=== PATIENT | female | born 1955 | race Caucasian/White ===

== ENCOUNTER 2023-05-07 17:45 | Emergency (ER) | payer MEDICARE, SELFPAY ==
[2023-05-07] VITALS (8 sets, daily range): BP systolic 95–158; BP diastolic 65–88; PULSE 99–110; RESP 13–28; TEMP 37.1; O2SAT 96–98; BMI 29.7
--- NOTE | 2023-05-07 18:29 | XRR_ITS ---
PROCEDURE INFORMATION: Exam: XR Chest Exam date and time: 05/07/2023 6:41 PM Age: 68 years old Clinical indication: Cough; Additional info: Cough/congestion TECHNIQUE: Imaging protocol: Radiologic exam of the chest. Views: 1 view. COMPARISON: CT abdomen pelvis w con* [id number] 08/07/2018 11:40 PM FINDINGS: Lungs: No focal consolidation. Pleural spaces: No evidence of pneumothorax. No evidence of pleural effusion. Heart/Mediastinum: Cardiomediastinal silhouette is within normal limits. Bones/joints: No evidence of acute osseous abnormality. XR/XR chest 1V portable [id number] IMPRESSION: 1. No acute cardiopulmonary abnormality.
--- NOTE | 2023-05-07 18:29 | ED_ITS ---
HPI - General Adult 2 General: Chief complaint: General Medical Stated complaint: high blood pressure Time Seen by Provider: 05/07/23 18:05 Source: patient and family () Mode of arrival: ambulatory Limitations: no limitations History of Present Illness: Patient is a very nice 68-year-old female presents to ED today along with her for evaluation of elevated blood pressure. PMH is significant only for hypertension which is usually well treated with 5mg of daily amlodipine. states recently has been under a great deal of stress as they have been taking care of her mother in their home who is terminally ill. She just a few days ago and since then patient has been struggling with anxiety. also feels like she is just gotten worn down as she has developed rhinorrhea and a productive cough. She has not been running fevers. She does complain of some pressure behind her eyes as well. No visual changes. She does not complain of a severe headache. She has not been using any OTC cough/cold formulations. states patient's mother had as needed hydralazine that has been gave to patient earlier today to help with blood pressures as they were as high as 180/118 earlier today. Upon my examination BP is currently 130s/70s. She has not had any chest pain. Onset (ago): day(s) (BP high over the past two days) Relieving factors: none Exacerbating factors: other (possibly stress/grief reaction) Associated symptoms: Reports cough; Deny chest pain, confusion, dyspnea, malaise, nausea, rash, palpitations, syncope or vomiting Treatments prior to arrival: other (Hydralazine) Review of Systems 2 Const: Reports: fatigue; Denies: fever(s), chills, body aches or malaise Eyes: Denies: change in vision, blurry vision, photophobia, floaters or seeing flashes ENMT: Reports: nasal discharge and sinus pain; Denies: throat pain, odynophagia, ear or mastoid pain or nasal congestion Card: Denies: chest pain, palpitations, irregular heart rhythm, edema, lightheadedness, syncope or pre-syncope Resp: Reports: productive cough and chest congestion; Denies: dyspnea, wheezing or hemoptysis GI: Denies: abdominal pain, nausea, vomiting or diarrhea Musc: Denies: neck pain, back pain, extremity pain or joint pain Skin/Breast: Denies: rash Neuro: Denies: numbness in extremities, weakness in extremities, sensory changes, difficulty walking, dizziness, confusion, Slurred speech present or difficulty communicating thoughts Physical Exam 2 Const: COMMON NORMALS: no acute distress, average body habitus, patient oriented x3, no limitations, healthy appearing, alert and well nourished G ENERAL APPEARANCE: cooperative ORIENTATION/CONSCIOUSNESS: Yes awake, Yes oriented to person, Yes oriented to place and Yes oriented to time HENMT: COMMON NORMALS: normocephalic and atraumatic HEAD & SCALP: normal to inspection, normocephalic and atraumatic Resp: COMMON NORMALS: normal respiratory effort and clear to auscultation bilaterally AUSCULTATION: clear to auscultation bilaterally Cardio: COMMON NORMALS: regular rate and regular rhythm RATE: regular rate RHYTHM: regular rhythm Extremity: COMMON NORMALS: no clubbing, cyanosis or edema, no calf tenderness and no pedal edema Neuro: ABIMAEL COMA SCALE: document GCS findings Hume coma scale eye opening: Spontaneous Abimael coma scale verbal response: Orientated Abimael coma scale motor response: Obey commands Hume coma scale total score: 15 COMMON NORMALS: patient oriented x3, moves all extremities, no focal motor deficits and no sensory deficits noted SENSORIUM/ORIENTATION: Yes alert, Yes oriented to person, Yes oriented to place and Yes oriented to time Skin: COMMON NORMALS: no rashes or lesions noted GENERAL SKIN EXAM: no rashes or lesions noted Course 2 Vital Signs: Vital signs: Vital Signs Temperature 98.8 F 05/07/23 17:55 Pulse Rate 102 H 05/07/23 19:00 Respiratory Rate 17 05/07/23 19:00 Blood Pressure 109/70 05/07/23 19:00 Pulse Oximetry 97 05/07/23 19:00 Oxygen Delivery Me thod Room Air 05/07/23 19:00 [facility] - General Adult Medical Decision Making Vital signs here have been stable. She has had some mild tachycardia but blood pressures have not been significantly elevated. Blood work is essentially unremarkable. She had some mild hypokalemia at 3.1. Respiratory panel collected and pending due to the cough, congestion, runny nose, and feeling worn down although this could be mentally/emotionally secondary to caring for her mother over the past month prior to her passing. CXR unremarkable. and patient would like to try something to help with her anxiety/grief. They will follow up with their PCP for the blood pressure if this continues to run high. Lab Data 05/07/23 18:50 05/07/23 18:50 Radiology Impressions Chest X-Ray 05/07/23 18:29 IMPRESSION: 1. No acute cardiopulmonary abnormality. Laboratory Results WBC 9.84 10^3/uL (3.29-11.43) 05/07/23 18:50 RBC 5.15 10^6/uL (3.85-5.65) 05/07/23 18:50 Hgb 14.70 g/dL (11.27-16.99) 05/07/23 18:50 Hct 45.0 % (36-47) 05/07/23 18:50 MCV 87.4 fl (85-98) 05/07/23 18:50 MCH 28.5 pg (27-33) 05/07/23 18:50 MCHC 32.7 g/dL (30-55) 05/07/23 18:50 RDW 13.7 % (12.1-15.1) 05/07/23 18:50 Plt Count 261 10^3/cmm (157-399) 05/07/23 18:50 MPV 9.9 fL (7.4-10.4) 05/07/23 18:50 Neut % (Auto) 82.1 % 05/07/23 18:50 Lymph % (Auto) 8.0 % 05/07/23 18:50 [place] % (Auto) 6.1 % 05/07/23 18:50 Eos % (Auto) 2.0 % 05/07/23 18:50 Baso % (Auto) 1.2 % 05/07/23 18:50 Neut # (Auto) 8.07 10^3/uL (1.8-7.7) H 05/07/23 18:50 Lymph # (Auto) 0.8 10^3/uL (0.8-4.8) 05/07/23 18:50 [place] # (Auto) 0.6 10^3/uL (0.2-0.9) 05/07/23 18:50 Eos # (Auto) 0.2 10^3/uL (0.0-0.8) 05/07/23 18:50 Baso # (Auto) 0.1 10^3/uL (0.0-0.1) 05/07/23 18:50 Nucleated RBC % (auto) 0 % 05/07/23 18:50 Nucleated RBCs # 0.0 /100WBC 05/07/23 18:50 Sodium 136 mmol/L (136-145) 05/07/23 18:50 Potassium 3.1 mmol/L (3.5-5.1) L 05/07/23 18:50 Chloride 100 mmol/L (98-107) 05/07/23 18:50 Carbon Dioxide 26 mmol/L (22-29) 05/07/23 18:50 Anion Gap 13.1 (5-19) 05/07/23 18:50 BUN 11 mg/dL (8-23) 05/07/23 18:50 Creatinine 0.7 mg/dL (0.5-0.9) 05/07/23 18:50 GFR Calculation 83.0 mL/min (90-130) L 05/07/23 18:50 Glucose 103 mg/dL (65-115) 05/07/23 18:50 Calculated Osmolality 282 mOsm/kg (285-295) L 05/07/23 18:50 Calcium 9.2 mg/dL (8.5-10.5) 05/07/23 18:50 Total Bilirubin 0.2 mg/dL (0.15-1.2) 05/07/23 18:50 AST 22 U/L (0-32) 05/07/23 18:50 ALT 28 U/L (0-33) 05/07/23 18:50 Alkaline Phosphatase 145 U/L (35-105) H 05/07/23 18:50 Total Protein 8.2 g/dL (6.6-8.7) 05/07/23 18:50 Albumin 4.4 g/dL (3.5-5.2) 05/07/23 18:50 Globulin 3.8 g/dL (1.3-4.6) 05/07/23 18:50 All radiology interpretation(s) finalized by discharge Discharge Plan Discharge Patient Disposition: Home Clinical Impression: Grief reaction Hypertension Qualifiers: Hypertension type: primary hypertension Qualified Code(s): I10 - Essential (primary) hypertension Condition: Stable Prescriptions: New Ativan 1 mg tablet 1 mg PO Q8H PRN (Reason: anxiety) Qty: 14 0RF Discharge Orders: Discharge ED (Routine); Ordered 05/07/23 Ordered By: Gi Orozco Activity Restrictions/Additional Instructions: As we discussed we will give patient something to attempt to help with her anxiety and grief. This may in turn help with her blood pressure. If blood pressure continues to remain elevated please follow-up with her primary care provider. Coding Level of Care Code ED [employer] for Janeth Fair
[2023-05-07] MEDS: LORazepam 2 mg/mL INJ 10 mL MDV 1 MG IM (18:54)
[2023-05-07 19:08] LABS: Basophils # 0.1 10^3/uL (0.0-0.1); Basophils % 1.2 %; Eosinophils # 0.2 10^3/uL (0.0-0.8); Lymphocytes # 0.8 10^3/uL (0.8-4.8); Mean Corpuscular HGB Conc 32.7 g/dL (30-55); Mean Corpuscular Hemoglobin 28.5 pg (27-33); Mean Corpuscular Volume 87.4 fl (85-98); Mean Platelet Volume 9.9 fL (7.4-10.4); Monocytes # 0.6 10^3/uL (0.2-0.9); Monocytes % 6.1 %; Neutrophils # 8.07 10^3/uL (1.8-7.7); Neutrophils % 82.1 %; Nucleated Red Blood Cells % 0 %; Platelet Count 261 10^3/cmm (157-399); Red Blood Count 5.15 10^6/uL (3.85-5.65); Red Cell Distribution Width 13.7 % (12.1-15.1); White Blood Count 9.84 10^3/uL (3.29-11.43)
[2023-05-07 19:25] LABS: Alanine Aminotransferase 28 U/L (0-33); Albumin Level 4.4 g/dL (3.5-5.2); Alkaline Phosphatase 145 U/L (35-105); Anion Gap 13.1 (5-19); Aspartate Amino Transferase 22 U/L (0-32); Blood Urea Nitrogen 11 mg/dL (8-23); Calcium 9.2 mg/dL (8.5-10.5); Carbon Dioxide 26 mmol/L (22-29); Chloride 100 mmol/L (98-107); Creatinine Clr Calc Pharmacy 74.8436; Globulin 3.8 g/dL (1.3-4.6); Glucose 103 mg/dL (65-115); Osmolality Calculated 282 mOsm/kg (285-295); Potassium 3.1 mmol/L (3.5-5.1); Sodium 136 mmol/L (136-145); Total Bilirubin 0.2 mg/dL (0.15-1.2); Total Protein 8.2 g/dL (6.6-8.7)
[2023-05-07] MEDS: potassium chloride ER 20 mEq Tablet 40 MEQ PO (19:55)
[2023-05-07 20:50] LABS: Adenovirus Not Detected (NOT DETECT); Chlamydia Pneumoniae Not Detected (NOT DETECT); Coronavirus 229E,HKU1,NL63,OC4 Not Detected (NOT DETECT); Human Metapneumovirus Not Detected (NOT DETECT); Human Rhinovirus/Enterovirus Not Detected (NOT DETECT); Influenza A Not Detected (NOT DETECT); Influenza A H1 Not Detected (NOT DETECT); Influenza A H1-2009 Not Detected (NOT DETECT); Influenza A H3 Not Detected (NOT DETECT); Influenza B Not Detected (NOT DETECT); Mycoplasma Pneumoniae Not Detected (NOT DETECT); Parainfluenza Virus Type 1 Not Detected (NOT DETECT); Parainfluenza Virus Type 2 Not Detected (NOT DETECT); Parainfluenza Virus Type 3 Not Detected (NOT DETECT); Parainfluenza Virus Type 4 Not Detected (NOT DETECT); Respiratory Syncytial Virus A Not Detected (NOT DETECT); Respiratory Syncytial Virus B Not Detected (NOT DETECT); SARS-COV-2 Not Detected (NOT DETECT)
== END 2023-05-07 20:00 | disposition home or self-care (01) ==
PROVIDERS: Emergency Provider Physician Assistant
DX: I10 Essential (primary) hypertension (principal); F43.20 Adjustment disorder, unspecified
CPT/HCPCS: 36415; 71045; 80053; 85025; 87486; 87581; 87633; 96372; 99284; J2060